=== PATIENT | female | born 1990 | race Caucasian/White ===

== ENCOUNTER 2016-07-04 10:06 | Emergency (ER) | payer MEDICAID ==
[2010-01-29 03:03] VITALS: BMI 21.4
[2016-07-04 11:32] LABS: BASOPHILS 0.6 % (0.0-2.0); EOSINOPHILS 3.2 % (0-7); HEMATOCRIT 38.8 % (36.0-48.0); HEMOGLOBIN 12.7 g/dL (12-16); IMMATURE GRANULOCYTES 0.4 % (0-5); LYMPHOCYTES 26.1 % (15-50); MCH 30.2 pg (26.0-34.0); MCHC 32.7 g/dL (31.0-37.0); MCV 92.4 fL (80.0-100.0); MEAN PLATELET VOLUME 9.8 fL (7.4-10.4); MONOCYTES 7.5 % (2-11); NEUTROPHILS 62.2 % (40-80); RDW 13.3 % (11.5-14.5)
[2016-07-04 11:35] LABS: PLATELET COUNT 194 10x3/uL (130-400)
[2016-07-04 11:49] LABS: ALBUMIN 3.8 g/dL (3.4-5.0); ANION GAP 7.9 mmol/L (8-16); BILIRUBIN - TOTAL 0.2 mg/dL (0.2-1.3); CALCIUM 8.5 mg/dL (8.5-10.1); CARBON DIOXIDE 29.8 mmol/L (21.0-32.0); POTASSIUM - SERUM 4.7 mmol/L (3.5-5.1); PROTEIN - SERUM 6.9 g/dL (6.4-8.2)
== END 2016-07-04 12:40 | disposition home or self-care (01) ==
LOC: D.ER 10:06
PROVIDERS: Emergency Medicine
DX: J20.9 Acute bronchitis, unspecified (principal); J01.90 Acute sinusitis, unspecified; I10 Essential (primary) hypertension

== ENCOUNTER 2018-04-20 20:55 | Emergency (ER) | payer SELFPAY ==
[~2018-04-20] VITALS: Ht 175.3 cm; Wt 64.0 kg
[2018-04-20 21:05] VITALS: Ht 175.3 cm; Wt 64.0 kg
[2018-04-20 21:23] LABS: APPEARANCE CLEAR (CLEAR); BILIRUBIN NEGATIVE (NEGATIVE); COLOR YELLOW (YELLOW); GLUCOSE NEGATIVE (NEGATIVE); KETONE NEGATIVE (NEGATIVE); NITRITE NEGATIVE (NEGATIVE); PROTEIN NEGATIVE (NEGATIVE); UROBILINOGEN NORMAL (NORMAL)
[2018-04-20 21:24] LABS: BACTERIA FEW /hpf (NONE SEEN); RED CELLS - URINE 0-5 /hpf (0-5)
[2018-04-20 21:47] LABS: BASOPHILS 0.1 % (0-2); EOSINOPHILS 0.5 % (0-7); HEMATOCRIT 34.4 % (36.0-48.0); IMMATURE GRANULOCYTES 0.3 % (0-5); LYMPHOCYTES 15.3 % (15-50); MCH 30.8 pg (26.0-34.0); MCHC 34.9 g/dL (31.0-37.0); MCV 88.2 fL (80.0-100.0); MEAN PLATELET VOLUME 9.3 fL (7.4-10.4); MONOCYTES 4.2 % (2-11); NEUTROPHILS 79.6 % (40-80); PLATELET COUNT 207 10x3/uL (130-400); RDW 12.6 % (11.5-14.5); WBC 10.1 10x3/uL (4.8-10.8)
[2018-04-20 22:08] LABS: HCG SERUM POSITIVE (NEGATIVE)
[2018-04-20 22:22] LABS: ALBUMIN 3.9 g/dL (3.4-5.0); ANION GAP 15.1 mmol/L (8-16); BILIRUBIN - TOTAL 0.2 mg/dL (0.2-1.3); CARBON DIOXIDE 23.6 mmol/L (21.0-32.0); POTASSIUM - SERUM 3.7 mmol/L (3.5-5.1); PROTEIN - SERUM 7.6 g/dL (6.4-8.2)
[2018-04-21] MEDS ORDERED: MACROBID100 MG PO (01:35)
[2018-04-21 02:08] VITALS: BP 151/90
== END 2018-04-21 02:04 | disposition home or self-care (01) ==
LOC: D.ER 20:55
PROVIDERS: Family Medicine
DX: O20.9 Hemorrhage in early pregnancy, unspecified (principal); Z3A.11 11 weeks gestation of pregnancy; A59.01 Trichomonal vulvovaginitis; I10 Essential (primary) hypertension

== ENCOUNTER 2018-08-26 13:26 | Observation (INO) | payer MEDICAID ==
[~2018-08-26] VITALS: Ht 175.3 cm; Wt 68.9 kg
[2018-08-26] VITALS (7 sets, daily range): BP systolic 111–167; BP diastolic 73–108; Ht 175.3 cm; Wt 68.9 kg
[~2018-08-26 13:26] MED LIST: MACROBID100 MG PO
[2018-08-26 15:26] LABS: BASOPHILS 0.2 % (0-2); HEMATOCRIT 32.7 % (36.0-48.0); HEMOGLOBIN 11.4 g/dL (12-16); IMMATURE GRANULOCYTES 0.3 % (0-5); LYMPHOCYTES 7.1 % (15-50); MCH 31.1 pg (26.0-34.0); MCHC 34.9 g/dL (31.0-37.0); MCV 89.3 fL (80.0-100.0); MEAN PLATELET VOLUME 9.8 fL (7.4-10.4); MONOCYTES 7.3 % (2-11); NEUTROPHILS 83.1 % (40-80); RBC 3.66 10x6/uL (4.00-5.40); RDW 12.7 % (11.5-14.5); WBC 13.2 10x3/uL (4.8-10.8)
[2018-08-26 15:27] LABS: PLATELET COUNT 145 10x3/uL (130-400)
[2018-08-26 15:50] LABS: ALBUMIN 2.6 g/dL (3.4-5.0); ALKALINE PHOSPHATASE 123 U/L (46-116); ALT (SGPT) 43 U/L (10-68); BILIRUBIN - TOTAL 0.26 mg/dL (0.2-1.3); CALC OSMOLALITY 267 mosm/kg (275-300); CHLORIDE - SERUM 100 mmol/L (98-107); CREATININE - SERUM 0.7 mg/dL (0.6-1.3); GLUCOSE 90 mg/dL (74-106); PROTEIN - SERUM 6.4 g/dL (6.4-8.2); SODIUM 135 mmol/L (136-145); UREA NITROGEN 7 mg/dL (7-18); URIC ACID 4.9 mg/dL (2.6-7.2); eGFR NON AFRICAN AMERICAN > 90 mL/min (90-120)
[2018-08-26 16:59] LABS: UDS - AMPHET POSITIVE QUAL (NEGATIVE); UDS - BARB NEGATIVE QUAL (NEGATIVE); UDS - BENZO POSITIVE QUAL (NEGATIVE); UDS - OPIATE NEGATIVE QUAL (NEGATIVE); UDS - PCP NEGATIVE QUAL (NEGATIVE); UDS - THC NEGATIVE QUAL (NEGATIVE)
[2018-08-26] MEDS ORDERED: SUDAFED 30 MG T30 MG PO (17:07)
[2018-08-26] MEDS ORDERED: TAMIFLU45 MG PO (17:08)
[2018-08-26 17:09] LABS: UDS - COCAINE NEGATIVE QUAL (NEGATIVE)
[2018-08-26] MEDS ORDERED: OMNICEF300 MG PO (17:09)
[2018-08-27 03:43] VITALS: BP 106/69
[2018-08-27] MEDS ORDERED: SPRINTEC 28 DA1 EAC1 PO (11:02)
--- NOTE | 2018-08-28 07:55 | OP ---
PATIENT NAME: MANJU ANN MEDICAL RECORD: [id number] :86 LOCATION:[id number] ADMISSION DATE:08/26/18 SURGEON: CLITN YOUNG MD DATE OF OPERATION: 08/26/2018 PREDELIVERY DIAGNOSES: 1. Second trimester with breech presentation. 2. head entrapment. 3. Nonviable . POSTDELIVERY DIAGNOSES: 1. Second trimester with breech presentation. 2. head entrapment. 3. Nonviable . PROCEDURE: Breech vaginal delivery of entrapped head. ATTENDING: Clint Young MD ANESTHESIOLOGIST: Mckay Yang MD ANESTHETIC: Conscious sedation. FINDINGS: Nonviable female infant found on the perineum upon presentation to the Emergency Room. The head was entrapped. After verbal consent given, anesthetic was obtained. Using Smellie-Veit maneuver and rotation of the vertex, the nuchal arm was delivered followed by the head. Placenta was delivered spontaneously at the time of vaginal delivery of the . No laceration. ESTIMATED BLOOD LOSS: 100 cc to 150 cc. DISPOSITION: Nonviable for assessment and nursery. The patient to recovery room. 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
== END 2018-08-27 16:00 | disposition home or self-care (01) ==
LOC: D.ER 13:26 → D.LD 13:58 → D.SDCHOLD 13:58 → OBSVTIME 13:59 → D.LD 15:01
PROVIDERS: ADMIT Obstetrics & Gynecology; ATTEND Obstetrics & Gynecology
DX: O36.4XX0 Maternal care for intrauterine death, not applicable or unspecified (principal); Z3A.23 23 weeks gestation of pregnancy; Z37.1 Single stillbirth; O75.89 Other specified complications of labor and delivery; O32.1XX0 Maternal care for breech presentation, not applicable or unspecified

== ENCOUNTER 2019-07-14 14:44 | Emergency (ER) | payer MEDICAID ==
[~2019-07-14] VITALS: Ht 175.3 cm; Wt 63.6 kg
[~2019-07-14 14:44] MED LIST changes: +OMNICEF300 MG PO; +SPRINTEC 28 DA1 EAC1 PO; +SUDAFED 30 MG T30 MG PO; +TAMIFLU45 MG PO
[2019-07-14 14:52] VITALS: Ht 175.3 cm; Wt 63.6 kg
[2019-07-14] MEDS ORDERED: ZPAK PO (16:28)
[2019-07-14] MEDS ORDERED: TESSALON PERLE100 MG PO (16:28)
[2019-07-14 16:36] VITALS: BP 125/74
== END 2019-07-14 16:36 | disposition home or self-care (01) ==
LOC: D.ER 14:44
DX: J02.9 Acute pharyngitis, unspecified (principal); J06.9 Acute upper respiratory infection, unspecified